=== PATIENT | female | born 1965 | race Caucasian/White ===

== ENCOUNTER 2021-04-09 18:44 | Emergency (ER) | payer OTHER ==
[~2021-04-09 18:44] MED LIST: MEDROL DOSEPAK 24 MG PO
[2021-04-09 20:28] LABS: HEMOGLOBIN 14.3 gm/dl (12.3-15.3); RED BLOOD COUNT 4.53 M/UL (4.00-5.10); WHITE BLOOD COUNT 16.1 K/UL (4.5-11.0)
[2021-04-09 20:51] LABS: BUN/CREATININE RATIO 27 (0-10)
[2021-04-10] MEDS ORDERED: OMNICEF 300 MG300 MG PO (01:56)
[2021-04-10] MEDS ORDERED: PHENERGAN 25 MG25 M1 PO (01:56)
== END 2021-04-10 01:55 | disposition home or self-care (01) ==
LOC: ER1 18:44
PROVIDERS: Physician Assistant
DX: N10 Acute pyelonephritis (principal); I10 Essential (primary) hypertension; Z88.5 Allergy status to narcotic agent; Z87.891 Personal history of nicotine dependence
CPT/HCPCS: 80053; 83605; 83690; 85025; 87040; 96374; 99284; J0696; Q9967

== ENCOUNTER 2021-08-21 20:13 | Inpatient (IN) | payer SELFPAY ==
[~2021-08-21] VITALS: Ht 157.5 cm; Wt 43.1 kg
[~2021-08-21 20:13] MED LIST changes: +OMNICEF 300 MG300 MG PO; +PHENERGAN 25 MG25 M1 PO
[2021-08-21 20:42] LABS: HEMOGLOBIN 14.5 gm/dl (12.3-15.3); RED BLOOD COUNT 4.49 M/UL (4.00-5.10)
[2021-08-22 05:23] LABS: BUN/CREATININE RATIO 22 (0-10)
[2021-08-22 05:33] LABS: RED BLOOD COUNT 3.78 M/UL (4.00-5.10)
[2021-08-22] MEDS ORDERED: IPRAT-ALBUT 0.5-3 ML NEB (13:59)
[2021-08-22] MEDS ORDERED: PROVENTIL HFA6.7 GM INH (14:00)
--- NOTE | 2021-08-22 14:23 | NUR ---
PATIENT WAS SCREAMING FROM ROOM WITH DOOR CLOSED, WENT INTO ROOM AND PATIENT HAD DROPPED CALL LIGHT. PATIENT WAS YELLING AT NURSE STATING SHE "HATED THAT [facility]" REFERRING TO THE PHYSICIAN. SHE WAS YELLING "GET ALL OF THIS OFF OF ME, I HATE THIS [facility]." I PROCEEDED TO STOP HER IV FLUIDS AND DISCONNECT THE TELEMETRY CORD FROM THE WIRES, THE CORD FROM THE PULSE OX, AND THE CORD FROM THE BLOOD PRESSURE CUFF. THE PATIENT KEPT YELLING SHE WAS LEAVING AND WOULD I CALL SOMEONE TO TAKE HER HOME. I TOLD HER WE WOULD NOT PAY FOR AMA TRANSPORT, BUT THE DOCTOR WAS DISCHARGING HER IF SHE WAITED WE WOULD CALL HER A CAB. SHE DEMANDS THAT NURSE CALLS SOMEONE AND GET HER SOME CLOTHES THAT SHE IS LEAVING. SHE THEN BEGINS GETTING AGRESSIVE WITH THE NURSE AND CALLING THE NURSE NAMES. NURSE INFORMS PATIENT SHE WILL NOT BE TALKED TO IN THIS MANNER. I LEFT THE ROOM CALLED SECURITY AND LINEN SORTER TO COME TO BEDSIDE. I GAVE HER A GOWN AND SLEEP PANTS TO PUT ON. LINEN SORTER GAVE PERMISSION TO PAY FOR CAB. THE CAB WAS CALLED AND INSTRUCTED TO TV PRODUCTION ASSISTANT AT ER ENTRANCE. PHYSICIAN PRINTED AND SIGNED PRESCRIPTIONS ALONG WITH DISCHARGE PACKET. PATIENT REFUSED TO BE REFERRED TO ANY LOCAL PRIMARY CARE PHYSICIANS. LINEN SORTER REMOVED IV FROM PATIENT AND HAD PATIENT SIGN DISCHARGE PAPERS. SECURITY PERSONNEL WHEELED PATIENT IN WHEEL CHAIR TO ED LOBBY DOORS TO MEET CAB.
[2021-08-23 04:16] LABS: CANDIDA ALBICANS Not Detected (Negative); CANDIDA KRUSEI Not Detected (Negative); CANDIDA TROPICALIS Not Detected (Negative); ESCHERICHIA COLI Not Detected (Negative); HAEMOPHILUS INFLUENZAE Not Detected (Negative); KLEBSIELLA OXYTOCA Not Detected (Negative); KLEBSIELLA PNEUMONIAE Not Detected (Negative); KPC-CARBAPENEM-RESISTANCE GENE Not Detected (Negative); PROTEUS Not Detected (Negative); PSEUDOMONAS AERUGINOSA Not Detected (Negative); SERRATIA MARCESANS Not Detected (Negative); STAPHYLOCOCCUS Not Detected (Negative); STAPHYLOCOCCUS AUREUS Not Detected (Negative); STREP AGALACTIAE (GROUP B) Not Detected (Negative); STREP PYOGENES (GROUP A) Not Detected (Negative); vanA/B (VANCOMYCIN RESIST GENE Not Detected (Negative)
[2021-08-23 04:25] LABS: STREPTOCOCCUS DETECTED (Negative)
--- NOTE | 2021-08-23 17:27 | NUR ---
Attempted to notify patient of positvie blood cultures received today from lab, neither phone number on the chart are working numbers. Dr Pagan is aware of our attempts to make contact with patient.
== END 2021-08-22 14:15 | disposition home or self-care (01) | DRG 917 ==
LOC: ER1 20:13 → CDU 23:37 → CCU 23:37
PROVIDERS: Emergency Medicine; Internal Medicine Critical Care Medicine; ADMIT Internal Medicine
DX: T40.2X1A Poisoning by other opioids, accidental (unintentional), initial encounter (principal); J96.01 Acute respiratory failure with hypoxia; G92.9 Unspecified toxic encephalopathy; Z20.822 Contact with and (suspected) exposure to COVID-19; E86.0 Dehydration; J44.9 Chronic obstructive pulmonary disease, unspecified; E86.1 Hypovolemia; G89.29 Other chronic pain; Z85.9 Personal history of malignant neoplasm, unspecified; Z87.891 Personal history of nicotine dependence; Z90.49 Acquired absence of other specified parts of digestive tract
CPT/HCPCS: 36415; 71045; 80048; 80053; 80307; 83605; 83735; 84100; 85025; 87040; 87150; 93005; 94664; 94760; 99285; J1885; J7030; U0002

== ENCOUNTER 2021-10-17 08:56 | Inpatient (IN) | payer OTHER ==
[~2021-10-17] VITALS: Ht 157.5 cm; Wt 35.8 kg
[~2021-10-17 08:56] MED LIST changes: +IPRAT-ALBUT 0.5-3 ML NEB; +PROVENTIL HFA6.7 GM INH
[2021-10-17 11:17] LABS: HEMOGLOBIN 14.2 gm/dl (12.3-15.3); RED BLOOD COUNT 4.5 M/UL (4.00-5.10); WHITE BLOOD COUNT 13.4 K/UL (4.5-11.0)
[2021-10-17 11:44] LABS: BUN/CREATININE RATIO 28 (0-10)
[2021-10-18 11:00] LABS: BUN/CREATININE RATIO 23 (0-10)
[2021-10-18 12:29] LABS: HEMOGLOBIN 11.5 gm/dl (12.3-15.3); RED BLOOD COUNT 3.79 M/UL (4.00-5.10); WHITE BLOOD COUNT 10.1 K/UL (4.5-11.0)
[2021-10-19 04:26] LABS: HEMOGLOBIN 11.9 gm/dl (12.3-15.3); RED BLOOD COUNT 3.82 M/UL (4.00-5.10); WHITE BLOOD COUNT 10.1 K/UL (4.5-11.0)
[2021-10-19 04:52] LABS: BUN/CREATININE RATIO 22 (0-10)
[2021-10-20 06:29] LABS: HEMOGLOBIN 11.8 gm/dl (12.3-15.3); RED BLOOD COUNT 3.79 M/UL (4.00-5.10); WHITE BLOOD COUNT 9.5 K/UL (4.5-11.0)
--- NOTE | 2021-10-20 13:11 | NUR ---
0645 - PT VERBALLY ABUSIVE TO STAFF. SCREAMING AND CURSING AT VETERINARIAN HELPER NURSE. EXPLAINED TO PT THAT THESE ACTIONS ARE NOT APPROPRIATE OR NECESSARY. PT REFUSING TO PUT ON GOWN OR OTHER CLOTHES. STATES SHE IS LAYING IN "FILTH". OFFERED TO CHANGE BED LINENS AND SHE REFUSED. SHE STATES SHE HASN'T RECEIVED "PAIN MEDICINE". NOC NURSE EXPLAINED THAT MED WAS GIVEN @ 0632. PT DENIES RECEIVING MED BECAUSE SHE DIDN'T "FEEL IT". REQUESTING MORE MEDS. EXPLAINED TO HER THAT HER MEDS WOULD NOT BE DUE UNTIL 1030. 0655 - PT OUT OF ROOM IN HALLWAY. STATES SHE ISN'T STAYING IN ROOM TO SCREAM AT NURSES. SHE IS GOING DOWNSTAIRS TO "COOL OFF". APPROXIMATELY 5 MINUTES LATER CALL RECEIVED TO COME BRING PT BACK TO ROOM FROM [facility]. SHE STATES SHE IS UNABLE TO WALK BACK TO ROOM. 0703 - PT BACK IN ROOM. REFUSES TO PUT TELE MONITOR BACK ON. EXPLAINED IMPORTANCE OF MONITOR BUT CONTINUES TO REFUSE TO WEAR IT.
[2021-10-20] MEDS ORDERED: AMOX TR-K CLV1 EAC4 PO (18:06)
[2021-10-20] MEDS ORDERED: NICOTINE PATCH1 EAC1 TOP (18:06)
[2021-10-20] MEDS ORDERED: IPRAT-ALBUT 0.5-3 ML NEB (18:06)
[2021-10-20] MEDS ORDERED: AMLODIPINE BESYL5 MG PO (18:06)
[2021-10-20] MEDS ORDERED: HUMIBID LA TAB600 MG PO (18:06)
[2021-10-20] MEDS ORDERED: OXYCODONE HCL5 M1 PO (19:03)
[2021-10-20] MEDS ORDERED: ALPRAZOLAM0.25 MG PO (19:03)
[2021-10-20] MEDS ORDERED: PROAIR HFA8.5 GM INH (19:07)
[2021-10-20] MEDS ORDERED: NORVASC5 MG PO (19:08)
--- NOTE | 2021-10-21 07:22 | NUR ---
PT SCREAMING AND THROWING OBJECTS IN THE ROOM DEMANDING TO BE DC'D. EXPLAINED TO PT THAT MD WOULD NEED TO BE NOTIFIED AND NEW DC ORDER OBTAINED. PT CONTINUES TO BE VERBALLY ABUSIVE TO STAFF. OFFERED AMA PAPERS. INSURANCE ADVISOR NOTIFIED AND CAME TO SEE PT. PT VERBALLY ABUSIVE TO LANGUAGE INSTRUCTOR, SCREAMING AND CURSING. AMA PAPER OFFERED AND PT REFUSED TO SIGN IT. PT STATES SHE DOESN'T HAVE TO SIGN ANYTHING. PT STATES SHE HAS TO LEAVE NOW R/T PERSONAL REASONS. EXPLAINED TO PT THAT MD WOULD BE CALLED AT 0800 AND DC ORDERS WOULD BE OBTAINED. PT BECAME LOUD AND AGRESSIVE, SWINGING AT NURSE WHO WAS TRYING TO REMOVE SALINE LOCK FROM RIGHT ARM. SECURITY CALLED, BUT PT CALMED PRIOR TO THEIR ARRIVAL. ASK PT TO REMAIN IN ROOM TIL MD COULD BE CALLED FOR DC ORDERS.
--- NOTE | 2021-10-21 08:26 | NUR ---
[id number] REYNA NOTIFIED OF PT'S DEMAND TO BE DC'D. STATES SHE IS ON CAMPUS AND WILL DC BRIGHT. PT MADE AWARE.
--- NOTE | 2021-10-21 09:44 | NUR ---
0815 - HERE TO SEE PT. WAITING ON ORDERS FOR DC. 0830 - PT REQUESTING PAIN MEDS PRIOR TO DC. STATES SHE CAN NOT LEAVE WITHOUT IT. VOICES CONCERNS ABOUT GETTING PRESCRIPTIONS FILLED AT DC. NSG OFFERED TO CONTACT CASE MANAGEMENT FOR POSSIBLE PRESCRIPTION ASSISTANCE AND PT REFUSED. STATES SHE IS NOT WAITING ANY LONGER FOR DC. 0910 - DC INSTRUCTIONS GIVEN TO PT. SALINE LOCK REMOVED. PT REQUESTING CAB. HUMAN RESOURCES PROJECT COORDINATOR NOTIFIED AND [facility] CALLED.
== END 2021-10-21 09:42 | disposition home or self-care (01) | DRG 193 ==
LOC: ER1 08:56 → CDU 13:13 → M/S 13:13
PROVIDERS: Internal Medicine; Nurse Practitioner; ADMIT Internal Medicine
DX: J18.9 Pneumonia, unspecified organism (principal); J96.01 Acute respiratory failure with hypoxia; E44.0 Moderate protein-calorie malnutrition; Z68.1 Body mass index [BMI] 19.9 or less, adult; N13.6 Pyonephrosis; E87.6 Hypokalemia; K43.9 Ventral hernia without obstruction or gangrene; I10 Essential (primary) hypertension; K76.0 Fatty (change of) liver, not elsewhere classified; F11.10 Opioid abuse, uncomplicated; F41.9 Anxiety disorder, unspecified; R10.2 Pelvic and perineal pain; J44.9 Chronic obstructive pulmonary disease, unspecified; D72.829 Elevated white blood cell count, unspecified; N89.8 Other specified noninflammatory disorders of vagina; R32 Unspecified urinary incontinence; Z85.51 Personal history of malignant neoplasm of bladder; Z93.3 Colostomy status; Z85.41 Personal history of malignant neoplasm of cervix uteri; Z79.899 Other long term (current) drug therapy; Z88.5 Allergy status to narcotic agent; Z87.891 Personal history of nicotine dependence
CPT/HCPCS: 36415; 36600; 71045; 71046; 80053; 80202; 82803; 83605; 83735; 84100; 85025; 85027; 85652; 86140; 87040; 93005; 94640; 94664; 94760; 96374; 96375; 99285; J0360; J1170; J1650; J1885; J2405; J2543; J3370; J3475; J7070; Q9967

== ENCOUNTER 2021-12-16 11:22 | Inpatient (IN) | payer OTHER ==
[~2021-12-16] VITALS: Ht 157.5 cm; Wt 36.3 kg
[~2021-12-16 11:22] MED LIST changes: +ALPRAZOLAM0.25 MG PO; +AMLODIPINE BESYL5 MG PO; +AMOX TR-K CLV1 EAC4 PO; +HUMIBID LA TAB600 MG PO; +NICOTINE PATCH1 EAC1 TOP; +NORVASC5 MG PO; +OXYCODONE HCL5 M1 PO; +PROAIR HFA8.5 GM INH
[2021-12-16 12:08] LABS: HEMOGLOBIN 15.3 gm/dl (12.3-15.3); RED BLOOD COUNT 4.85 M/UL (4.00-5.10); WHITE BLOOD COUNT 12.3 K/UL (4.5-11.0)
--- NOTE | 2021-12-17 12:41 | NUR ---
Pt has refused all treatment today, refused to take medication and refused lab to draw new potassium level. Pt has been irrate and been aggressive towards staff. Security has even been called for assistance today. Pt spoke to provider and still has decided to sign AMA papers. Son at bedside and is aware that pt is signing herself out AMA. Tried to contact MD. at 1210, 1215, 1235, providers phone is out of service at this time.
== END 2021-12-17 12:54 | disposition left against medical advice (07) | DRG 101 ==
LOC: ER1 11:22 → CDU 15:46 → MED SURG 4 15:46
PROVIDERS: Student in an Organized Health Care Education/Training Program; ADMIT Internal Medicine
DX: G40.909 Epilepsy, unspecified, not intractable, without status epilepticus (principal); E87.2 Acidosis; E46 Unspecified protein-calorie malnutrition; Z68.1 Body mass index [BMI] 19.9 or less, adult; N39.0 Urinary tract infection, site not specified; Z20.822 Contact with and (suspected) exposure to COVID-19; E87.6 Hypokalemia; C53.9 Malignant neoplasm of cervix uteri, unspecified; I10 Essential (primary) hypertension; E86.0 Dehydration; F17.210 Nicotine dependence, cigarettes, uncomplicated; F41.9 Anxiety disorder, unspecified; J44.9 Chronic obstructive pulmonary disease, unspecified; F19.10 Other psychoactive substance abuse, uncomplicated; Z88.8 Allergy status to other drugs, medicaments and biological substances; Z88.6 Allergy status to analgesic agent
CPT/HCPCS: 70450; 71045; 80053; 80307; 81001; 82550; 82553; 82962; 83605; 84484; 85025; 87040; 93005; 96374; 96375; 96376; 99285; J0133; J0696; J1953; J3480